=== PATIENT | female | born 1985 | race Caucasian/White ===

== ENCOUNTER 2018-07-25 09:45 | Emergency (ER) | payer OTHER ==
[~2018-07-25] VITALS: Ht 162.6 cm; Wt 95.7 kg
[2018-07-25] MEDS ORDERED: ZOFRAN8 MG (10:07)
== END 2018-07-25 17:40 | disposition home or self-care (01) ==
LOC: ER 09:45
DX: O26.891 Other specified pregnancy related conditions, first trimester (principal); K29.60 Other gastritis without bleeding; Z34.81 Encounter for supervision of other normal pregnancy, first trimester

== ENCOUNTER 2018-07-28 12:09 | Inpatient (IN) | payer OTHER ==
[~2018-07-28] VITALS: Ht 162.6 cm; Wt 94.3 kg
[~2018-07-28 12:09] MED LIST: ZOFRAN8 MG
[2018-07-28] MEDS ORDERED: PROTONIX20 MG (12:23)
[2018-08-02] MEDS ORDERED: ZOFRAN8 MG PO (14:24)
[2018-08-02] MEDS ORDERED: PEPCID20 MG PO (14:25)
[2018-08-02] MEDS ORDERED: PHENERGAN50 MG RECTAL (14:25)
== END 2018-08-02 15:11 | disposition home or self-care (01) | DRG 833 ==
LOC: ER 12:09 → OB/GYN 13:37
PROVIDERS: ADMIT Obstetrics & Gynecology
DX: O21.1 Hyperemesis gravidarum with metabolic disturbance (principal); Z34.81 Encounter for supervision of other normal pregnancy, first trimester; E86.0 Dehydration; E87.8 Other disorders of electrolyte and fluid balance, not elsewhere classified